=== PATIENT | female | born 2000 | race Caucasian/White ===

== ENCOUNTER 2021-10-30 01:05 | Emergency (ER) | payer OTHER ==
[~2021-10-30] VITALS: Ht 162.6 cm; Wt 68.2 kg
[2021-10-30 01:10] VITALS: TEMP 97.5
[2021-10-30] MEDS ORDERED: NORCO 325 MG-51 TAB PO (03:17)
[2021-10-30 04:04] VITALS: BP 108/97; PULSE 100
== END 2021-10-30 04:05 | disposition home or self-care (01) ==
LOC: COL.ER 01:05
DX: S13.9XXA Sprain of joints and ligaments of unspecified parts of neck, initial encounter (principal); S09.90XA Unspecified injury of head, initial encounter; Z28.310 Unvaccinated for COVID-19; V40.5XXA Car driver injured in collision with pedestrian or animal in traffic accident, initial encounter; Y92.410 Unspecified street and highway as the place of occurrence of the external cause
CPT/HCPCS: J2270; J2360